=== PATIENT | female | born 1995 | race Caucasian/White ===

== ENCOUNTER 2016-03-16 16:05 | Emergency (ER) | payer OTHER ==
[~2016-03-16] VITALS: Wt 63.0 kg
[~2016-03-16 16:05] MED LIST: ALPR0.5T PO; BUTA1CAP38 PO; NAPR-260 PO
[2016-03-16] MEDS ORDERED: LIDOCAINE 1%/EPI (MDV) 20 ML INJ INFIL ONE (17:30)
[2016-03-16] MEDS ORDERED: TRIMETHOPRIM/SULFAMETHOX (DS) TAB PO ONE (17:30)
[2016-03-16] MEDS ORDERED: HYDROCODONE/APAP (5/325) TAB PO ONE (17:30)
[2016-03-16] MEDS ORDERED: BACTDS PO (17:33)
[2016-03-16] MEDS ORDERED: ACET1TAB40 PO (17:33)
[2016-03-16] MEDS ORDERED: IBUP-1542 PO (17:33)
--- NOTE | 2016-03-16 17:38 | ERD ---
ER Documentation Chief Complaint Date/Time DATE: 03/16/16 TIME: 17:37 Chief Complaint LEFT UPPER THIGH ABSCESS FOR THE PAST FEW DAYS. NO RECENT FEVERS HPI This 20-year-old female complains of some swelling and redness of her left buttock for the last 3 days. She has small amount of blood. She denies fevers , vomiting, shortness of the chest pain. She denies any inciting event such as injections or insect bites. ROS All systems reviewed and are negative except as per history of present illness. Medications Home Meds Active Scripts Ibuprofen* (Motrin*) 600 Mg Tab, 600 MG PO Q6, #15 TAB Prov:SAMMY BAUMAN MD 03/16/16 Acetaminophen with Codeine (Acetaminophen-Cod #3 Tablet) 1 Each Tablet, 1 TAB PO Q6H Y for PAIN, #10 TAB Prov:SAMMY BAUMAN MD 03/16/16 Sulfamethoxazole-Trimethoprim* (Bactrim* DS) 800-160 Mg Tab, 1 TAB PO BID for 7 Days, TAB Prov:SAMMY BAUMAN MD 03/16/16 Alprazolam* (Xanax*) 0.5 Mg Tab, 0.5 MG PO BID Y for ANXIETY, #12 TAB Prov:DIMAS DEVINE MD 04/29/15 Naproxen* (Naprosyn*) 500 Mg Tablet, 500 MG PO BID Y for PAIN, #30 TAB Prov:KAREN WHITTAKER MD 04/28/15 Etojvmcgtc-Suvhjcujjdvpx-Igjzhqqq* (Fioricet*) 50-300-40 Mg Capsule, 1 CAP PO Q4H Y for head, #30 CAP Prov:KAREN WHITTAKER MD 04/28/15 Allergies Allergies: Coded Allergies: No Known Allergy (Unverified , 03/16/16) PMhx/Soc History of Surgery: No Anesthesia Reaction: No Hx Neurological Disorder: No Hx Respiratory Disorders: Yes (ASTHMA) Hx Cardiac Disorders: No Hx Psychiatric Problems: No Hx Miscellaneous Medical Probl: No Hx Alcohol Use: No Hx Substance Use: No Hx Tobacco Use: No Smoking Status: Never smoker Physical Exam Vitals Vital Signs Date Time Temp Pulse Resp B/P Pulse Ox O2 Delivery O2 Flow Rate FiO2 03/16/16 16:35 98.8 93 20 119/59 98 Physical Exam Const: [] Alert, lbq-lmd-gzlqoaxaq per Head: Atraumatic Eyes: Normal Conjunctiva ENT: Normal External Ears, Nose and Mouth. Neck: Full range of motion..~ No meningismus. Resp: Clear to auscultation bilaterally Cardio: Regular rate and rhythm, no murmurs Abd: Soft, non tender, non distended. Normal bowel sounds Skin: No petechiae or rashes. There is approximately 2-3 cm area of induration with a small pointing pustule on the left buttock. There is scant amount of blood from the pustule and minimal fluctuance. Back: No midline or flank tenderness Ext: No cyanosis, or edema Neur: Awake and alert Psych: Normal Mood and Affect Results 24 hrs Current Medications Medications (Trade) Dose Ordered Sig/Kory Route PRN Reason Start Time Stop Time Status Last Admin Dose Admin Acetaminophen/ Hydrocodone Bitart (Letona (5/325)) 1 tab ONCE ONCE PO 03/16/16 17:30 03/16/16 17:31 DC Trimethoprim/ Sulfamethoxazole (Bactrim (Ds)) 1 tab ONCE ONCE PO 03/16/16 17:30 03/16/16 17:31 DC Lidocaine/ Epinephrine (Xylocaine 1%/ Epi (Mdv) 20 ml) 20 ml ONCE ONCE INFIL 03/16/16 17:30 03/16/16 17:31 DC Procedures/MDM Patient was given Bactrim double strength by mouth and ibuprofen. Procedure note-the left buttock area was prepped with Betadine. 3 cc of lidocaine was used for local infiltration. #11 scalpel was used to incise the wound. A small amount of process expressed. Loculations were broken up with a cotton tip swab. The wound was packed with approximately 4 cm of quarter-inch gauze and a dressing was applied. Patient presents with complicated abscess of her left buttock. She will discharged home with prescription of Bactrim, ibuprofen, 3 incisions for wound check in 2-3 days. She should return sooner for fevers, redness which is worsening or new worsening symptoms as directed and aftercare instructions. No evidence of significant cellulitis, necrotizing fasciitis, sepsis. Departure Diagnosis: Primary Impression: Abscess Condition: Stable Patient Instructions: Abscess (, Incision And Drainage) Additional Instructions: Wound check in 2-3 days for gauze removal. Recheck sooner for worsening redness , fevers, new symptoms. SAMMY BAUMAN MD Mar 16, 2016 17:38
[2016-03-16 18:08] VITALS: BP 115/57; PULSE 87; RESP 18; TEMP 98.9
== END 2016-03-16 18:10 | disposition home or self-care (01) ==
LOC: FTE 16:05
DX: L02.31 Cutaneous abscess of buttock (principal); J45.909 Unspecified asthma, uncomplicated
CPT/HCPCS: 10061; Z7502; Z7610

== ENCOUNTER 2016-03-20 14:44 | Emergency (ER) | payer OTHER ==
[~2016-03-20] VITALS: Ht 154.9 cm; Wt 62.5 kg
[~2016-03-20 14:44] MED LIST changes: +ACET1TAB40 PO; +BACTDS PO; +IBUP-1542 PO
[2016-03-20 15:23] VITALS: Ht 154.9 cm; Wt 62.5 kg
--- NOTE | 2016-03-20 15:49 | ERD ---
ER Documentation Chief Complaint Date/Time DATE: 03/20/16 TIME: 15:48 Chief Complaint LEFT BUTTOCKS WOUND CHECK HPI 20-year-old female comes in for a left buttock abscess incision and drainage wound check. I&D was done about 3 days ago, she is currently taking antibiotics and states she is doing well. She denies fevers, chills, drainage. ROS All systems reviewed and are negative except as per history of present illness. Medications Home Meds Active Scripts Ibuprofen* (Motrin*) 600 Mg Tab, 600 MG PO Q6, #15 TAB Prov:SAMMY BAUMAN MD 03/16/16 Acetaminophen with Codeine (Acetaminophen-Cod #3 Tablet) 1 Each Tablet, 1 TAB PO Q6H Y for PAIN, #10 TAB Prov:SAMMY BAUMAN MD 03/16/16 Sulfamethoxazole-Trimethoprim* (Bactrim* DS) 800-160 Mg Tab, 1 TAB PO BID for 7 Days, TAB Prov:SAMMY BAUMAN MD 03/16/16 Alprazolam* (Xanax*) 0.5 Mg Tab, 0.5 MG PO BID Y for ANXIETY, #12 TAB Prov:DIMAS DEVINE MD 04/29/15 Naproxen* (Naprosyn*) 500 Mg Tablet, 500 MG PO BID Y for PAIN, #30 TAB Prov:KAREN WHITTAKER MD 04/28/15 Nontkzqzdt-Yiogrdogvbzri-Bnotjnbo* (Fioricet*) 50-300-40 Mg Capsule, 1 CAP PO Q4H Y for head, #30 CAP Prov:KAREN WHITTAKER MD 04/28/15 Allergies Allergies: Coded Allergies: No Known Allergy (Unverified , 03/16/16) PMhx/Soc History of Surgery: No Anesthesia Reaction: No Hx Neurological Disorder: No Hx Respiratory Disorders: Yes (ASTHMA) Hx Cardiac Disorders: No Hx Psychiatric Problems: No Hx Miscellaneous Medical Probl: No Hx Alcohol Use: No Hx Substance Use: No Hx Tobacco Use: No Physical Exam Vitals Vital Signs Date Time Temp Pulse Resp B/P Pulse Ox O2 Delivery O2 Flow Rate FiO2 03/20/16 15:23 98.2 73 18 99/60 98 Physical Exam General: Well-developed, well-nourished. The patient appears in no acute distress. HEENT: Head is normocephalic, atraumatic. No scleral icterus. Neck: Supple. Nontender. Lungs: Clear to auscultation. Normal air movement. Heart: Regular rate and rhythm. S1 and S2 are normal. No murmurs, gallops, or rubs. Abdomen: Nondistended. Extremities: No clubbing or cyanosis. Moving extremities x 4. No weakness. Neurologic: Alert and oriented 3. No focal deficits. Normal speech and gait. Skin: 1 cm incision on the left buttock, surrounding skin is nonerythematous, there is no drainage, packing removal was removed and there was no pus drainage. Procedures/MDM Abscess incision and drainage wound check was in for 20-year-old female. Packing material was removed and clean dressing was applied. Wound shows no evidence of infection, foreign body, neurologic injury, vascular injury, open joint or tendon laceration. Patient appropriate for outpatient follow up. Departure Diagnosis: Primary Impression: Encounter for wound re-check Condition: Good Patient Instructions: Abscess, Incision And Drainage YOLIE VARGAS PA-C Mar 20, 2016 15:49
== END 2016-03-20 16:40 | disposition home or self-care (01) ==
LOC: E/R 14:44
DX: Z48.01 Encounter for change or removal of surgical wound dressing (principal); J45.909 Unspecified asthma, uncomplicated
CPT/HCPCS: 99281

== ENCOUNTER 2016-04-15 19:29 | Emergency (ER) | payer OTHER ==
[~2016-04-15] VITALS: Ht 162.6 cm; Wt 60.5 kg
[2016-04-15 19:34] VITALS: Ht 162.6 cm; Wt 60.5 kg
--- NOTE | 2016-04-15 20:39 | ERD ---
ER Documentation Chief Complaint Date/Time DATE: 04/15/16 TIME: 20:30 Chief Complaint "cp since yesterday, i have anxiety" pt texting and laughing HPI 20 y/o female accompanied by Luana, her cousin presents to ED for "chest pain since yesterday, I have anxiety." Stated that she has this kind of chest pain before, was checked and it was normal, then was diagnosed with anxiety. Denies chest pain at this time. Denies visual/auditory hallucination/delusion. Denies thoughts of hurting self and/or others. Has the capacity to decide for herself. Lives with family members. States that she has good support system at home. Denies headache, loss of consciousness, dizziness, blurry vision, changes in vision, photophobia, facial pain, ear pain, throat pain, difficulty swallowing, neck pain, shoulder pain, cough, hemoptysis, abdominal pain, back pain, loss of appetite, nausea, vomiting, hematochezia, diarrhea, constipation, urinary symptoms, , the possibility of being , bladder and bowel incontinences, extremity weakness, extremity tenderness, numbness or tingling sensation, difficulty walking, recent travel, recent exposure to illness, recent antibiotic use in the last 3 months, fever, chills. Allergy: NKA PMH: Denies. Family medical history: Denies family history of cardiac disease, family history of sudden before the age of 50, heart attack before the age of 50 , hypertension, high cholesterol, stroke. AO LMP: "None at this time. I have IUD, Mirena that was inserted last May 2015. He told me it is good for 5 years." Medications: Denies. Surgery: Denies. Primary Social History: Not working at this time. Denies smoking, use of alcohol, use of illegal drugs. ROS All systems reviewed and are negative except as per history of present illness. Medications Home Meds Active Scripts Ibuprofen* (Motrin*) 600 Mg Tab, 600 MG PO Q6, #15 TAB Prov:SAMMY BAUMAN MD 03/16/16 Acetaminophen with Codeine (Acetaminophen-Cod #3 Tablet) 1 Each Tablet, 1 TAB PO Q6H Y for PAIN, #10 TAB Prov:SAMMY BAUMAN MD 03/16/16 Sulfamethoxazole-Trimethoprim* (Bactrim* DS) 800-160 Mg Tab, 1 TAB PO BID for 7 Days, TAB Prov:SAMMY BAUMAN MD 03/16/16 Alprazolam* (Xanax*) 0.5 Mg Tab, 0.5 MG PO BID Y for ANXIETY, #12 TAB Prov:DIMAS DEVINE MD 04/29/15 Naproxen* (Naprosyn*) 500 Mg Tablet, 500 MG PO BID Y for PAIN, #30 TAB Prov:KAREN WHITTAKER MD 04/28/15 Eucpyqlkoq-Edmyewrwxyvct-Ehryzrpr* (Fioricet*) 50-300-40 Mg Capsule, 1 CAP PO Q4H Y for head, #30 CAP Prov:KAREN WHITTAKER MD 04/28/15 Allergies Allergies: Coded Allergies: No Known Allergy (Unverified , 03/16/16) PMhx/Soc Medical and Surgical Hx: pt denies Surgical Hx History of Surgery: No Anesthesia Reaction: No Hx Neurological Disorder: No Hx Respiratory Disorders: Yes Hx Cardiac Disorders: No Hx Psychiatric Problems: No Hx Miscellaneous Medical Probl: No Hx Alcohol Use: No Hx Substance Use: No Hx Tobacco Use: No Smoking Status: Never smoker Physical Exam Vitals Vital Signs Date Time Temp Pulse Resp B/P Pulse Ox O2 Delivery O2 Flow Rate FiO2 04/15/16 19:34 97.9 73 18 119/73 99 Physical Exam CONSTITUTIONAL: Well-appearing; well-nourished; in no apparent distress. HEAD: Normocephalic; atraumatic. EYES: Conjunctiva clear, sclera non-icteric, EOM intact. PERRL Ears: Hearing intact. EACs clear, TMs non-bulging, non-inflamed, translucent & mobile, ossicles normal appearance, No obstructions, no erythema, no discharges Nose: No obstructions. No polyps. No external lesions. Mucosa non-inflamed. No external lesions, septum and turbinates normal. No rhinorrhea. No discharges. Frontal sinus is non-tender to palpation. Maxillary sinus is non-tender to palpation. MOUTH: Moist mucous membranes, no lesion, no obstructions, no vesicles, no thrush, patent airway Throat: Uvula in midline. Right tonsil is +1 with no erythema, no exudate. Left tonsil is +1 with no erythema, no exudate. Tolerating secretions well. Good gag reflex. Patent airway. Neck: Supple, without lesions, bruits, or adenopathy. No mass. Thyroid non- enlarged and non-tender to palpation. CHEST: Symmetrical chest. Respirations even and not labored. No retractions noted. CARDIOVASCULAR: Normal S1, S2. RRR. No murmurs, gallops. RESPIRATORY: Normal chest excursion with respiration; breath sounds clear and equal bilaterally; no wheezes, rhonchi, or rales. Breathing even and unlabored. Speaking in clear, full, and complete sentences w/ ease. ABDOMEN: Normal bowel sounds normal. Soft, round, non-distended, non-guarding, no tenderness, no rebound, no organomegaly, no masses, no pulsating abdominal mass. No hernia. No peritoneal signs. : No CVA tenderness. BACK: Symmetrical shoulder. Spine is midline without deformity, tenderness. No evidence of trauma or deformity. PELVIS: Stable pelvis. No evidence of trauma or deformity. MUSCULOSKELETAL: Normal gait and station. No misalignment, asymmetry, crepitation, defects, tenderness, masses, effusions, decreased range of motion, instability, atrophy or abnormal strength or tone in the head, neck, spine, ribs , pelvis or extremities. No calf tenderness. NEUROVASCULAR: Distal pulses are present. Pedal pulse are present, equal, and normal. Capillary refills are < 2 seconds. NEUROLOGIC: Alert and oriented x4. Speaks full and clear sentences. Cranial Nerves II-XII normal. Sensation to pain, touch, and proprioception normal. Grossly unremarkable. No neurologic deficits. Romberg test is negative. PSYCHOLOGICAL: The patients mood and manner are appropriate. No hallucinations , delusions. Not SI. Not HI. Has the capacity to decide for self SKIN: Normal for age and ethnicity; warm; dry; good turgor; no apparent lesions or exudates. No rashes, hives, discoloration. Intact. Procedures/MDM Examination: Please see physical examination. Disease process, medical treatment was explained to the patient and family member. They verbalized understanding and agreed with the diagnostic tests, medical treatment, and follow-up care. EKG: Normal sinus rhythm. Read by Dr. Katie Early. POC urine : Negative. Treatment: None. Re-evaluation: Denies chest pain. Patient denies auditory/visual hallucinations/ delusions. Not suicidal. Not homicidal. Has the capacity to decide for herself. Has good support system at home. Consultation: None. Differential diagnosis: Acute myocardial infarction versus chest wall pain versus anxiety versus stress Medical decision makin20 y/o female accompanied by Luana, her cousin presents to ED for "chest pain since yesterday, I have anxiety." Stated that she has this kind of chest pain before, was checked and it was normal, then was diagnosed with anxiety. Denies chest pain at this time. Denies visual/auditory hallucination/delusion. Denies thoughts of hurting self and/or others. Has the capacity to decide for herself. Lives with family members. States that she has good support system at home. Patient's complaint, family member's history about patient's complaint, my physical findings, diagnostic test results are consistent with my final diagnostics of anxiety. Stable and safe to go home. Medications prescribed are the following: [id number]-[id number] Tylenol and/or Motrin a supportive treatment for pain and no fever. Patient and family member are made aware of the side effects and adverse reactions of the medications prescribed. Instructed on when to seek emergent and medical attention in case allergic/anaphylactic reactions or severe side effects and or adverse reactions to medications. Patient and family member verbalized understanding. Patient instructed Instructed to follow-up with his PCP in 24-48 hours. PCP to refer patient to psychologist and/or psychiatrist in the next 24-48 hours. Instructed to Call 911 for chest pain, shortness of breath. Advised to come back here in ED as soon as possible for severity of symptoms which includes but not limited to: any new symptoms; shortness of breath/difficulty of breathing; cardiovascular changes; severe gastrointestinal symptoms; signs and symptoms of bleeding and or infection; signs of compartment syndrome/neurovascular changes; neurological changes/deficits. Patient and family member verbalized understanding. Upon discharge, patient is alert and oriented x 4, speaks full and clear sentences, denies pain, has no neurological deficits, has no neurovascular deficits, difficulty of breathing. Breathing even and unlabored. Lung sounds are clear to auscultation. Not in distress. Appears comfortable. Ambulatory with steady gait. Patient denies auditory/visual hallucinations/delusions. Not suicidal. Not homicidal. Has the capacity to decide for herself. Has good support system at home. Appears satisfied with care provided here in ED. Departure Diagnosis: Primary Impression: Anxiety Condition: Good Additional Instructions: Follow-up with PCP in the next 24-48 hours. Patient verbalized understanding. Patient also agreed with follow-up care. RACIEL TAYLOR Apr 15, 2016 20:39
== END 2016-04-15 21:27 | disposition home or self-care (01) ==
LOC: FTE 19:29
DX: F41.9 Anxiety disorder, unspecified (principal)
CPT/HCPCS: 93005

== ENCOUNTER 2016-04-26 21:20 | Emergency (ER) | payer OTHER ==
[~2016-04-26] VITALS: Ht 154.9 cm; Wt 60.5 kg
[2016-04-26 22:07] VITALS: Ht 154.9 cm; Wt 60.5 kg
[2016-04-26] MEDS ORDERED: ACETAMINOPHEN 500 MG TAB PO STA (23:49)
[2016-04-26] MEDS ORDERED: SOD CHLORIDE 0.9% 1,000 ML IV STA (23:49)
--- NOTE | 2016-04-26 23:56 | ERD ---
ER Documentation Chief Complaint Date/Time DATE: 04/26/16 TIME: 23:55 Chief Complaint AP, HINKLE and feels like SOB x1 day HPI 20-year-old female presents to emergency department for complaints of generalized abdominal pain, shortness of breath, chills, fever and headaches started yesterday. Patient is complaining of generalized abdominal pain, cramping pain, 4/10 scale. Patient has episodes of on and off shortness of breath, having chills and on no fever. Patient's complaining of headache, throbbing pain, 4/10 scale, not better or worse with anything. Patient did not take any medications of symptoms. Patient denies any neck pain. ROS All systems reviewed and are negative except as per history of present illness. Medications Home Meds Active Scripts Ondansetron (Ondansetron Odt) 4 Mg Tab.rapdis, 4 MG PO Q8 Y for NAUSEA AND/OR VOMITING, #30 TAB Prov:JORDAN KEITH NP 04/27/16 Acetaminophen* (Tylophen*) 500 Mg Capsule, 1 CAP PO Q6H Y for PAIN AND OR ELEVATED TEMP, #20 CAP Prov:JORDAN KEITH NP 04/27/16 Ibuprofen* (Motrin*) 600 Mg Tab, 600 MG PO Q6H Y for PAIN AND OR ELEVATED TEMP, #30 TAB Prov:JORDAN KEITH NP 04/27/16 Ibuprofen* (Motrin*) 600 Mg Tab, 600 MG PO Q6, #15 TAB Prov:SAMMY BAUMAN MD 03/16/16 Acetaminophen with Codeine (Acetaminophen-Cod #3 Tablet) 1 Each Tablet, 1 TAB PO Q6H Y for PAIN, #10 TAB Prov:SAMMY BAUMAN MD 03/16/16 Sulfamethoxazole-Trimethoprim* (Bactrim* DS) 800-160 Mg Tab, 1 TAB PO BID for 7 Days, TAB Prov:SAMMY BAUMAN MD 03/16/16 Alprazolam* (Xanax*) 0.5 Mg Tab, 0.5 MG PO BID Y for ANXIETY, #12 TAB Prov:DIMAS DEVINE MD 04/29/15 Naproxen* (Naprosyn*) 500 Mg Tablet, 500 MG PO BID Y for PAIN, #30 TAB Prov:KAREN WHITTAKER MD 04/28/15 Bpfrmdiepa-Upkcmcpbtqbmx-Erxqbkev* (Fioricet*) 50-300-40 Mg Capsule, 1 CAP PO Q4H Y for head, #30 CAP Prov:KAREN WHITTAKER MD 04/28/15 Allergies Allergies: Coded Allergies: No Known Allergy (Unverified , 03/16/16) PMhx/Soc Medical and Surgical Hx: pt denies Medical Hx, pt denies Surgical Hx History of Surgery: No Anesthesia Reaction: No Hx Neurological Disorder: No Hx Respiratory Disorders: Yes Hx Cardiac Disorders: No Hx Psychiatric Problems: No Hx Miscellaneous Medical Probl: No Hx Alcohol Use: No Hx Substance Use: No Hx Tobacco Use: No Smoking Status: Never smoker FmHx Family History: No coronary disease, No diabetes, No other Physical Exam Vitals Vital Signs Date Time Temp Pulse Resp B/P Pulse Ox O2 Delivery O2 Flow Rate FiO2 04/26/16 22:07 101.8 100 18 118/64 100 Physical Exam GENERAL: The patient is well developed and appropriate for usual state of health, in no apparent distress. CHEST: Clear to auscultation bilaterally. There are no rales, wheezes or rhonchi. HEART: Regular rate and rhythm. No murmurs, clicks, rubs or gallops. No S3 or S4. ABDOMEN: Soft, nontender and nondistended. Good bowel sounds. No rebound or guarding. No gross peritonitis. No gross organomegaly or masses. No Caal sign or McBurney point tenderness. BACK: No midline or flank tenderness. EXTREMITIES: Equal pulses bilaterally. There is no peripheral clubbing, cyanosis or edema. No focal swelling or erythema. Full range of motion. Grossly neurovascularly intact. NEURO: Alert and oriented. Cranial nerves 2-12 intact. Motor strength in all 4 extremities with 5/5 strength. Sensation grossly intact. Normal speech and gait. Negative Romberg sign. Negative pronator drift. SKIN: There is no apparent rash or petechia. The skin is warm and dry. HEMATOLOGIC AND LYMPHATIC: There is no evidence of excessive bruising or lymphedema. No gross cervical, axillary, or inguinal lymphadenopathy. Result Diagram: 04/27/16 0049 04/27/16 0049 Results 24 hrs Laboratory Tests Test 04/27/16 00:12 04/27/16 00:49 Bedside Urine Blood Trace-intact Bedside Urine Glucose (UA) Negative Bedside Urine Ketones (LAB) 2+ Bedside Urine Leukocyte Esterase (L Negative Bedside Urine Nitrite (LAB) Negative Bedside Urine Protein (LAB) 2+ Bedside Urine pH (LAB) 7.0 Alanine Aminotransferase (ALT/SGPT) 32IU/L Albumin 4.6g/dl Albumin/Globulin Ratio 1.39 Alkaline Phosphatase 93IU/L Anion Gap 17 Aspartate Amino Transf (AST/SGOT) 26IU/L Basophils # 0.010^3/ul Basophils % 0.2% Blood Urea Nitrogen 9mg/dl Calcium Level 9.1mg/dl Carbon Dioxide Level 26mmol/L Chloride Level 99mmol/L Creatinine 0.63mg/dl Direct Bilirubin 0.00mg/dl Eosinophils # 0.010^3/ul Eosinophils % 0.0% Globulin 3.30g/dl Glucose Level 103mg/dl Hematocrit 39.4% Hemoglobin 13.2g/dl Indirect Bilirubin 0.6mg/dl Lipase 57U/L Lymphocytes # 0.710^3/ul Lymphocytes % 7.7% Mean Corpuscular Hemoglobin 29.1pg Mean Corpuscular Hemoglobin Concent 33.5g/dl Mean Corpuscular Volume 87.0fl Mean Platelet Volume 10.1fl Monocytes # 0.810^3/ul Monocytes % 8.5% Neutrophils # 8.010^3/ul Neutrophils % 83.3% Nucleated Red Blood Cells # 0.010^3/ul Nucleated Red Blood Cells % 0.0/100WBC Platelet Count 50607^3/UL Potassium Level 3.9mmol/L Red Blood Count 4.5310^6/ul Red Cell Distribution Width 12.0% Sodium Level 138mmol/L Total Bilirubin 0.6mg/dl Total Protein 7.9g/dl White Blood Count 9.610^3/ul Current Medications Medications (Trade) Dose Ordered Sig/Kory Route PRN Reason Start Time Stop Time Status Last Admin Dose Admin Sodium Chloride (NS) 1,000 ml @ 1,000 mls/hr Q1H STAT IV 04/26/16 23:49 04/27/16 00:48 DC 04/27/16 00:47 Acetaminophen (Tylenol Tab) 500 mg ONCE STAT PO 04/26/16 23:49 04/26/16 23:53 DC 04/27/16 00:47 Normal saline IV bolus was given here in emergency department for rehydration, patient tolerated IV fluids.Patient was given medicines for fever control here in the emergency department. After treatment, patient temperature improved and lower. Patient appears well and is hemodynamically stable. PROCEDURE: Portable chest x-ray. CLINICAL INDICATION: Abdominal pain. TECHNIQUE: Portable AP view of the chest. COMPARISON: 01/19/2011. FINDINGS: No pulmonary edema or conolidation is identified. The cardiac silhouette is magnified. No pleural effusion is seen. There is no pneumothorax. There is no pneumoperitoneum. IMPRESSION: 1. No evidence of acute cardiopulmonary disease. 2. No pneumoperitoneum. RPTAT: HTAR .Ricky Ching MD, Date Time Electronically viewed and signed by .Ricky Ching MD, on 04/27/2016 00:51 .R/ CC: JORDAN KEITH FLATWORK CATCHER Microbiology INFLUENZA A & B BY EIA Final INFLU A&B BY EIA INFLUENZA A NEGATIVE (Ref Range Neg) INFLUENZA B NEGATIVE (Ref Range Neg) PROCEDURE: CT Abdomen and pelvis without contrast. CLINICAL INDICATION: Abdominal pain. TECHNIQUE: CT scan of the abdomen and pelvis was performed on a multi- detector high-resolution CT scanner. Contiguous axial images were obtained from the lung bases to the ischial tuberosities without intravenous contrast. Coronal and sagittal reformatted images were also obtained. Images were reviewed on the PACS workstation. One or more of the following dose reduction techniques were used: - Automated exposure control. - Adjustment of the mA and/or kV according to patient size. - Use of iterative reconstruction technique. Exam CTD/vol = 6.59 mGy. Total exam DLP = 372.29 mGy-cm. COMPARISON: None. FINDINGS: Evaluation of the lung bases demonstrates no pleural or parenchymal disease. Abdomen: The liver is normal in size. There is no focal mass or dilatation of the biliary tree. The gallbladder is not distended. The spleen, pancreas and bilateral adrenal glands are within normal limits. Bilateral kidneys are normal in size with no contour deforming mass identified. There is no radiopaque renal or ureteral calculus identified. There is no hydronephrosis or hydroureter. There is no retroperitoneal adenopathy. The abdominal aorta is of normal caliber. There is no abnormal bowel wall thickening or distension. There is no bowel obstruction or free air. A normal appendix is identified. There is no diverticulosis or diverticulitis. There is no ascites. Pelvis: The bladder is unremarkable. The uterus and adnexa are within normal limits. There is an intrauterine device in place. There is no significant pelvic adenopathy or free fluid. Evaluation of the osseous structures demonstrates no suspicious lytic or blastic lesion. IMPRESSION: No acute abnormality identified within the abdomen and pelvis. May Intrauterine device in place. .Oc Elliott MD, MD Date Time Electronically viewed and signed by .Oc Elliott MD, on 04/27/2016 02:27 .T/ CC: JORDAN KEITH FLATWORK CATCHER Procedures/MDM Medical decision making: Patient symptoms are consistent with viral syndrome. No symptoms of any pneumonia, no symptoms of abdominal emergencies, CT scan abdomen and pelvis and chest x-ray does not show any abnormalities. Patient has urinary tests is normal, no urinary tract infection noted. No symptoms of dehydration. No leukocytosis, no bandemia, fever is controlled. Patient was given a prescription for ibuprofen, Zofran, is advised to follow-up with primary care doctor in 1-2 days for reevaluation of symptoms. Patient was advised to return to emergency department for any worsening symptoms. Departure Diagnosis: Primary Impression: Viral syndrome Condition: Stable Patient Instructions: Viral Syndrome (Child) Additional Instructions: Patient was given a prescription for ibuprofen, Zofran, is advised to follow-up with primary care doctor in 1-2 days for reevaluation of symptoms. Patient was advised to return to emergency department for any worsening symptoms. JORDAN KEITH NP Apr 26, 2016 23:56
[2016-04-27 00:10] LABS: URINE BLOOD (Dip) POC Trace-intact (NEGATIVE)
--- NOTE | 2016-04-27 00:51 | RADRPT ---
PROCEDURE: Portable chest x-ray. CLINICAL INDICATION: Abdominal pain. TECHNIQUE: Portable AP view of the chest. COMPARISON: 01/19/2011. FINDINGS: No pulmonary edema or conolidation is identified. The cardiac silhouette is magnified. No pleural effusion is seen. There is no pneumothorax. There is no pneumoperitoneum. IMPRESSION: 1. No evidence of acute cardiopulmonary disease. 2. No pneumoperitoneum. RPTAT: HTAR .Ricky Ching MD, MD Date Time Electronically viewed and signed by .Ricky Ching MD, on 04/27/2016 00:51 .R/
[2016-04-27 01:21] LABS: ADD SCAN DIFF NO; BASOPHILS % 0.2 % (0.0-2.0); HEMATOCRIT 39.4 % (37.0-47.0); HEMOGLOBIN 13.2 g/dl (12.0-16.0); LYMPHOCYTES # 0.7 10^3/ul (0.8-2.9); LYMPHOCYTES % 7.7 % (15.0-51.0); MEAN CORPUSCULAR HEMOGLOBIN 29.1 pg (29.0-33.0); MEAN CORPUSCULAR HGB CONC 33.5 g/dl (32.0-37.0); MEAN PLATELET VOLUME 10.1 fl (7.4-10.4); MONOCYTE # 0.8 10^3/ul (0.3-0.9); MONOCYTES % 8.5 % (0.0-11.0); NEUTROPHILS % 83.3 % (39.0-77.0); PLATELET COUNT 268 10^3/UL (140-415); RED BLOOD COUNT 4.53 10^6/ul (4.20-5.40); WHITE BLOOD COUNT 9.6 10^3/ul (4.8-10.8)
[2016-04-27 01:34] LABS: ALBUMIN 4.6 g/dl (3.3-4.9); POTASSIUM 3.9 mmol/L (3.5-5.1)
[2016-04-27 01:36] LABS: BILIRUBIN,INDIRECT 0.6 mg/dl (0-1.1); BILIRUBIN,TOTAL 0.6 mg/dl (0.2-1.3); CREATININE 0.63 mg/dl (0.44-1.00)
[2016-04-27 01:37] LABS: ALBUMIN/GLOBULIN RATIO 1.39; CALCIUM 9.1 mg/dl (8.4-10.2); TOTAL PROTEIN 7.9 g/dl (6.1-8.1)
--- NOTE | 2016-04-27 02:28 | RADRPT ---
PROCEDURE: CT Abdomen and pelvis without contrast. CLINICAL INDICATION: Abdominal pain. TECHNIQUE: CT scan of the abdomen and pelvis was performed on a multi-detector high-resolution CT scanner. Contiguous axial images were obtained from the lung bases to the ischial tuberosities wit hout intravenous contrast. Coronal and sagittal reformatted images were also obtained. Images were reviewed on the PACS workstation. One or more of the following dose reduction techniques were used: - Automated exposure control. - Adjustment of the mA and/or kV according to patient size. - Use of iterative reconstruction technique. Exam CTD/vol = 6.59 mGy. Total exam DLP = 372.29 mGy-cm. COMPARISON: None. FINDINGS: Evaluation of the lung bases demonstrates no pleural or parenchymal disease. Abdomen: The liver is normal in size. There is no focal mass or dilatation of the biliary tree. T he gallbladder is not distended. The spleen, pancreas and bilateral adrenal glands are within raymond l limits. Bilateral kidneys are normal in size with no contour deforming mass identified. There is no radiopaque renal or ureteral calculus identified. There is no hydronephrosis or hydroureter. T here is no retroperitoneal adenopathy. The abdominal aorta is of normal caliber. There is no abnormal bowel wall thickening or distension. There is no bowel obstruction or free air . A normal appendix is identified. There is no diverticulosis or diverticulitis. There is no asci ranjeet. Pelvis: The bladder is unremarkable. The uterus and adnexa are within normal limits. There is an intrauterine device in place. There is no significant pelvic adenopathy or free fluid. Evaluation of the osseous structures demonstrates no suspicious lytic or blastic lesion. IMPRESSION: No acute abnormality identified within the abdomen and pelvis. May Intrauterine device in place. .Oc Elliott MD, MD Date Time Electronically viewed and signed by .Oc Elliott MD, MD on 04/27/2016 02:27 .T/
[2016-04-27] MEDS ORDERED: IBUP-1542 PO (03:34)
[2016-04-27] MEDS ORDERED: ACET500C5 PO (03:34)
[2016-04-27] MEDS ORDERED: ONDA4TAB14 PO (03:34)
== END 2016-04-27 04:02 | disposition home or self-care (01) ==
LOC: FTE 21:20
DX: B34.9 Viral infection, unspecified (principal)
CPT/HCPCS: 36415; 71010; 74176; 80053; 81003; 83690; 85025; 87400; J7030; Z7502; Z7610

== ENCOUNTER 2016-09-12 15:49 | Emergency (ER) | payer OTHER ==
[~2016-09-12] VITALS: Ht 154.9 cm; Wt 62.5 kg
[~2016-09-12 15:49] MED LIST changes: +ACET500C5 PO; +ONDA4TAB14 PO
[2016-09-12 15:56] VITALS: Ht 154.9 cm; Wt 62.5 kg
--- NOTE | 2016-09-12 16:09 | ERA ---
ER Documentation Chief Complaint Date/Time DATE: 09/12/16 TIME: 16:07 Chief Complaint right buttocks abscess x 1 week HPI This is a 20-year-old female is presenting with a chief complaint of abscess on the right buttocks. Patient has had abscesses before in different areas. Patient states that the abscess has popped a little but has not fully drained. Patient has not taken any other medications at this time to relieve the symptoms. Denies aggravating/alleviating factors, numbness, tingling, fevers, chills or foul smell. No recent travel, vaccination status up-to-date. Nursing notes have been reviewed and are consistent with history given. ROS All systems reviewed and are negative except as per history of present illness. Medications Home Meds Active Scripts Hydrocodone/Acetaminophen (Okarche 5-325 Tablet) 1 Each Tablet, 1 TAB PO Q6H Y for PAIN, #7 TAB Prov:JELLY ACEVES PA-C 09/12/16 Sulfamethoxazole/Trimethoprim* (Bactrim Ds* Tablet) 1 Each Tablet, 1 TAB PO BID for 7 Days, TAB Prov:JELLY ACEVES PA-C 09/12/16 Cephalexin* (Keflex*) 500 Mg Capsule, 500 MG PO QID for 5 Days, CAP Prov:JELLY ACEVES PA-C 09/12/16 Ondansetron (Ondansetron Odt) 4 Mg Tab.rapdis, 4 MG PO Q8 Y for NAUSEA AND/OR VOMITING, #30 TAB Prov:JORDAN KEITH NP 04/27/16 Acetaminophen* (Tylophen*) 500 Mg Capsule, 1 CAP PO Q6H Y for PAIN AND OR ELEVATED TEMP, #20 CAP Prov:JORDAN KEITH NP 04/27/16 Ibuprofen* (Motrin*) 600 Mg Tab, 600 MG PO Q6H Y for PAIN AND OR ELEVATED TEMP, #30 TAB Prov:JORDAN KEITH NP 04/27/16 Ibuprofen* (Motrin*) 600 Mg Tab, 600 MG PO Q6, #15 TAB Prov:SAMMY BAUMAN MD 03/16/16 Acetaminophen with Codeine (Acetaminophen-Cod #3 Tablet) 1 Each Tablet, 1 TAB PO Q6H Y for PAIN, #10 TAB Prov:SAMMY BAUMAN MD 03/16/16 Sulfamethoxazole-Trimethoprim* (Bactrim* DS) 800-160 Mg Tab, 1 TAB PO BID for 7 Days, TAB Prov:SAMMY BAUMAN MD 03/16/16 Alprazolam* (Xanax*) 0.5 Mg Tab, 0.5 MG PO BID Y for ANXIETY, #12 TAB Prov:DIMAS DEVINE MD 04/29/15 Naproxen* (Naprosyn*) 500 Mg Tablet, 500 MG PO BID Y for PAIN, #30 TAB Prov:KAREN WHITTAKER MD 04/28/15 Qbpgbkpmph-Azqkckvlrkyey-Xxnyplah* (Fioricet*) 50-300-40 Mg Capsule, 1 CAP PO Q4H Y for head, #30 CAP Prov:KAREN WHITTAKER MD 04/28/15 Allergies Allergies: Coded Allergies: No Known Allergy (Unverified , 03/16/16) PMhx/Soc History of Surgery: No Anesthesia Reaction: No Hx Neurological Disorder: No Hx Respiratory Disorders: Yes Hx Cardiac Disorders: No Hx Psychiatric Problems: No Hx Miscellaneous Medical Probl: No Hx Alcohol Use: No Hx Substance Use: No Hx Tobacco Use: No Physical Exam Vitals Vital Signs Date Time Temp Pulse Resp B/P Pulse Ox O2 Delivery O2 Flow Rate FiO2 09/12/16 15:56 98.2 100 18 103/64 97 Physical Exam Const: Healthy-appearing. Overweight. Well-developed. No acute distress. Skin: [] Ext: No edema or palpable cord. Normal movement of all extremities grossly observed. Neur: Awake, alert and oriented x3. Neurovascularly intact bilaterally. Oral: No oral edema visualized. Mucous membranes moist and pink. Head: Normocephalic, Atraumatic. Eyes: Non-injected; No discharge. EOMI and BECKIE bilaterally. Ears: Normal External Ears, EACs clear, TM normal bilaterally without erythema. Nose: Normal external nose; no discharge, or sinus tenderness. Neck: No cervical lymphadenopathy, masses or goiter palpated. ~ No meningismus. Pulm: Good air movement in upper and lower respiratory tracts. No dyspnea, stridor, tripoding or drooling. Clear to auscultation bilaterally. Cardio: Regular rate and rhythm; No murmurs, gallops or rubs auscultated. No JVD grossly observed. No cyanosis. Capillary refill less than 2 seconds. Abd: Soft, non tender, non distended. No guarding, masses. Normal bowel sounds. MS: Normal motor strength, normal tone with gross examination. Back: No midline, flank or CVA tenderness. Psych: Normal Mood and Affect. Results 24 hrs Current Medications Medications (Trade) Dose Ordered Sig/Kory Route PRN Reason Start Time Stop Time Status Last Admin Dose Admin Lidocaine/ Epinephrine (Xylocaine 2%/ Epi Mpf(Sdv)) 20 ml ONCE ONCE INJ 09/12/16 16:30 09/12/16 16:31 DC Procedures/MDM 20-year-old female presenting with a chief complaint of abscess as described in the history and physical examination. Patient received an incision and drainage. The muleser was the nurse Bearden. 5 mL of 2% lidocaine with epi was used to numb the area. Patient is driving and has refused systemic analgesia. 5 mm vertical incision was made. 10-11 mL of yellow fluid was expressed. Patient's wound will be left open to heal by secondary intention. Patient will be discharged with Bactrim, Keflex due to recurrence of abscesses. Patient will also be given Okarche 5/325 mg p.o. 7 tabs. There are no complications and the patient is neurovascularly intact after the procedure. I have little suspicion for systemic involvement or spreading cellulitis. I have spoke with the patient regarding their condition and future management. They have verbally responded that they understand their status and treatment plan. The patients vitals are stable, and their current condition is appropriate for discharge. The patient will be given discharge instructions with return precautions. Departure Diagnosis: Primary Impression: Abscess Condition: Stable Additional Instructions: Follow up with your PCP within the next 1-3 days for a more thorough evaluation and a possible referral to a specialist. Return the the emergency department immediately if symptoms worsen or change. If you have any questions regarding medications, ask your pharmacist or us before you leave. If any adverse reactions occur while taking your medications, discontinue the treatment and return to the emergency department immediately. Take your medications as directed, and complete the entire course of treatment. JELLY ACEVES PA-C Sep 12, 2016 16:09
[2016-09-12] MEDS ORDERED: LIDOCAINE 2%/EPI MPF (SDV) 20 ML VIAL INJ ONE (16:30)
[2016-09-12] MEDS ORDERED: HYDR-906 PO (16:47)
[2016-09-12] MEDS ORDERED: CEPH-443 PO (16:47)
[2016-09-12] MEDS ORDERED: SULF1TAB31 PO (16:47)
== END 2016-09-12 16:51 | disposition home or self-care (01) ==
LOC: FTE 15:49
DX: L02.31 Cutaneous abscess of buttock (principal)
CPT/HCPCS: 10060; Z7502

== ENCOUNTER 2017-04-24 21:55 | Emergency (ER) | END 2017-04-25 01:56 | disposition left against medical advice (07) ==

== ENCOUNTER 2017-04-25 09:36 | Emergency (ER) | END 2017-04-25 14:11 | disposition home or self-care (01) ==

== ENCOUNTER 2017-09-06 14:26 | Emergency (ER) | END 2017-09-06 17:20 | disposition home or self-care (01) ==